=== PATIENT | female | born 2000 | race Caucasian/White ===

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

== ENCOUNTER 2022-06-17 11:51 | Inpatient (IN) ==
[2022-06-17 13:08] LABS: ABS Basophils 0.1 10^3/ul (0-0.2); ABS Eosinophils 0.1 10^3/ul (0-0.6); ABS Lymphocytes 2.1 10^3/ul (1.0-4.8); ABS Monocytes 0.8 10^3/ul (0-0.8); ABS Neutrophils 8.7 10^3/ul (1.5-7.7); Eosinophil % 0.8 %; Hematocrit 28 % (35-47); Hemoglobin 8.1 g/dL (12.0-16.0); Lymphocyte % 18.1 %; Mean Corpuscular HGB Conc 29 g/dL (31-36); Mean Corpuscular Hemoglobin 19 pg (27-31); Mean Corpuscular Volume 65 fL (80-97); Nucleated Red Blood Cells % 0.4; Platelet Count 432 10^3/uL (150-450); Red Blood Count 4.31 10^6 /uL (3.70-4.87); Red Cell Distribution Width 20 % (10-15); White Blood Count 11.8 10^3/uL (3.5-10.8)
[2022-06-17 13:29] LABS: Albumin 3.9 g/dL (3.2-5.2); Albumin/Globulin Ratio 1.3 (1-3); Creatinine, Serum 0.51 mg/dL (0.51-0.95); Globulin 2.9 g/dL (2-4); Potassium 4.5 mmol/L (3.5-5.0); Total Bilirubin 0.4 mg/dL (0.2-1.0); Total Protein 6.8 g/dL (6.4-8.9); eGFR CKD-EPI 136.1 (>60)
[2022-06-17 14:20] LABS: High Sensitivity Troponin 1 Hr 57 pg/mL (<15)
[2022-06-17] MEDS ORDERED: Iodixanol (CONTRAST) 320 MG/ML 100 ML SDV IV ONE (16:34)
[2022-06-17] MEDS ORDERED: Enoxaparin 40 MG/0.4 ML SYR SUBCUT SCH (17:00)
[2022-06-17] MEDS ORDERED: guaiFENesin 100 mg/5 ml LIQ unit dose cup PO PRN (17:34)
[2022-06-17] MEDS ORDERED: Magnesium Hydroxide LIQ 30 ML UDC PO PRN (17:34)
[2022-06-17] MEDS ORDERED: Albuterol HFA INHALER 8 gm MDI INH PRN (17:34)
[2022-06-17 17:55] LABS: PCO2 Arterial 54 mmHg (35-45); PO2 Arterial 76 mmHg (80-100)
[2022-06-17] MEDS ORDERED: Ondansetron ODT 4 mg TAB 4 MG TAB PO PRN (18:07)
[2022-06-17] MEDS: Enoxaparin 60 MG/0.6 ML SYR SUBCUT SCH (20:49)
[2022-06-18] MEDS: Enoxaparin 60 MG/0.6 ML SYR SUBCUT SCH ×2 (05:40→18:01)
[2022-06-18 06:58] LABS: ABS Basophils 0.1 10^3/ul (0-0.2); ABS Eosinophils 0.1 10^3/ul (0-0.6); ABS Lymphocytes 1.9 10^3/ul (1.0-4.8); ABS Monocytes 0.6 10^3/ul (0-0.8); ABS Neutrophils 7.5 10^3/ul (1.5-7.7); Eosinophil % 1.2 %; Hematocrit 27 % (35-47); Hemoglobin 7.9 g/dL (12.0-16.0); Lymphocyte % 18.5 %; Mean Corpuscular HGB Conc 30 g/dL (31-36); Mean Corpuscular Hemoglobin 19 pg (27-31); Mean Corpuscular Volume 65 fL (80-97); Mean Platelet Volume 6.8 fL (7.4-10.4); Nucleated Red Blood Cells % 0.2; Platelet Count 390 10^3/uL (150-450); Red Blood Count 4.11 10^6 /uL (3.70-4.87); Red Cell Distribution Width 19 % (10-15); White Blood Count 10.2 10^3/uL (3.5-10.8)
[2022-06-18 07:40] LABS: % Iron Saturation 5 % (15-55); Blood Urea Nitrogen 16 mg/dL (6-24); CO2 Carbon Dioxide 36 mmol/L (22-32); Calcium 8.8 mg/dL (8.6-10.3); Chloride 99 mmol/L (101-111); Cholesterol 134 mg/dL; Creatinine, Serum 0.62 mg/dL (0.51-0.95); Glucose 121 mg/dL (70-100); Iron 26 ug/dL (50-212); Potassium 4.6 mmol/L (3.5-5.0); Sodium 134 mmol/L (135-145); Total Iron Binding Capacity 561 mcg/dL (250-450); Transferrin 401 mg/dL (203-362); Triglycerides 171 mg/dL; Unsaturated Iron Binding 535 ug/dL; eGFR CKD-EPI 129.9 (>60)
[2022-06-18 07:54] LABS: TSH Ultra Thyroid Stim Horm 3.41 mcIU/mL (0.34-5.60)
[2022-06-18 08:04] LABS: HDL Cholesterol 43.1 mg/dL; LDL Cholesterol 57 mg/dL
[2022-06-18] MEDS ORDERED: Sulfur Hexaflouride MICROSPHR 25 MG VIAL ONE (08:04)
[2022-06-18 08:05] LABS: Folate 18.21 ng/mL (5.90-24.80)
[2022-06-18 08:06] LABS: Vitamin B12 466 pg/mL (180-914)
[2022-06-18] MEDS ORDERED: Furosemide 20 mg/2 ml IV VIAL IV SCH (09:00)
[2022-06-18] MEDS: Polyethylene Glycol 3350 17 GM PACKET PO SCH (09:10)
[2022-06-18] MEDS ORDERED: Iron Sucrose 200 MG in NS 0.9% 100 ml BAG 100 ML IVPB ONE (10:30)
[2022-06-19] MEDS: Enoxaparin 60 MG/0.6 ML SYR SUBCUT SCH ×2 (05:43→18:29)
[2022-06-19 06:55] LABS: ABS Eosinophils 0.1 10^3/ul (0-0.6); ABS Lymphocytes 1.5 10^3/ul (1.0-4.8); ABS Monocytes 0.4 10^3/ul (0-0.8); ABS Neutrophils 7.5 10^3/ul (1.5-7.7); Eosinophil % 0.6 %; Hematocrit 29 % (35-47); Hemoglobin 8.5 g/dL (12.0-16.0); Lymphocyte % 16.1 %; Mean Corpuscular HGB Conc 29 g/dL (31-36); Mean Corpuscular Hemoglobin 19 pg (27-31); Mean Corpuscular Volume 65 fL (80-97); Mean Platelet Volume 6.9 fL (7.4-10.4); Nucleated Red Blood Cells % 0.2; Platelet Count 409 10^3/uL (150-450); Red Cell Distribution Width 19 % (10-15); White Blood Count 9.5 10^3/uL (3.5-10.8)
[2022-06-19] MEDS: Polyethylene Glycol 3350 17 GM PACKET PO SCH (07:16)
[2022-06-19 07:21] LABS: Calcium 8.8 mg/dL (8.6-10.3); Creatinine, Serum 0.54 mg/dL (0.51-0.95); Potassium 4.8 mmol/L (3.5-5.0); eGFR CKD-EPI 134.2 (>60)
[2022-06-20] MEDS: Enoxaparin 60 MG/0.6 ML SYR SUBCUT SCH (05:36)
[2022-06-20 07:12] LABS: ABS Eosinophils 0.1 10^3/ul (0-0.6); ABS Lymphocytes 1.9 10^3/ul (1.0-4.8); ABS Monocytes 0.5 10^3/ul (0-0.8); ABS Neutrophils 5.5 10^3/ul (1.5-7.7); Eosinophil % 1.2 %; Hematocrit 28 % (35-47); Hemoglobin 8.1 g/dL (12.0-16.0); Lymphocyte % 23.2 %; Mean Corpuscular HGB Conc 29 g/dL (31-36); Mean Corpuscular Hemoglobin 19 pg (27-31); Mean Corpuscular Volume 65 fL (80-97); Mean Platelet Volume 6.6 fL (7.4-10.4); Platelet Count 374 10^3/uL (150-450); Red Blood Count 4.34 10^6 /uL (3.70-4.87); Red Cell Distribution Width 19 % (10-15)
[2022-06-20 07:20] LABS: Blood Urea Nitrogen 13 mg/dL (6-24); CO2 Carbon Dioxide 38 mmol/L (22-32); Calcium 8.9 mg/dL (8.6-10.3); Chloride 98 mmol/L (101-111); Creatinine, Serum 0.55 mg/dL (0.51-0.95); Glucose 78 mg/dL (70-100); Potassium 4.3 mmol/L (3.5-5.0); Sodium 136 mmol/L (135-145); eGFR CKD-EPI 133.7 (>60)
[2022-06-20] MEDS: Polyethylene Glycol 3350 17 GM PACKET PO SCH (08:42)
[2022-06-20] MEDS ORDERED: Iron Sucrose 200 MG in NS 0.9% 100 ml BAG 100 ML IVPB ONE (10:00)
[2022-06-20 11:07] VITALS: BP 142/66
== END 2022-06-20 14:30 | disposition home health service (06) | DRG 143 ==
LOC: ED 11:51 → EDHOLD 11:51 → SUATTDRO 16:22 → MEDTELE 17:20
PROVIDERS: ADMIT Hospitalist; ATTEND Internal Medicine